=== PATIENT | male | born 2000 | race Asian ===

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

== ENCOUNTER 2022-03-03 18:07 | Emergency (ER) | payer OTHER ==
[~2022-03-03] VITALS: Ht 175.3 cm; Wt 88.9 kg
[~2022-03-03 18:07] MED LIST changes: +ELIQ2.5T PO
[2022-03-03] MEDS ORDERED: ACET-683 PO (18:16)
[2022-03-03] MEDS ORDERED: CAFF200T6 PO (18:16)
[2022-03-03] MEDS ORDERED: IBUP200C25 PO (18:16)
[2022-03-03 21:51] VITALS: BP 130/80
== END 2022-03-03 22:02 | disposition home or self-care (01) ==
LOC: M ED 18:07
DX: J02.9 Acute pharyngitis, unspecified (principal); B34.8 Other viral infections of unspecified site; D68.59 Other primary thrombophilia; Z86.711 Personal history of pulmonary embolism

== ENCOUNTER 2022-04-11 20:57 | Emergency (ER) | payer OTHER ==
[~2022-04-11] VITALS: Ht 175.3 cm; Wt 92.2 kg
[~2022-04-11 20:57] MED LIST changes: +CAFF200T6 PO; +IBUP200C25 PO
[2022-04-11] MEDS ORDERED: ONDANSETRON 4MG ORAL DISINTEGRATING TAB PO ONE (23:10)
[2022-04-12 00:48] VITALS: BP 130/76
== END 2022-04-12 00:50 | disposition home or self-care (01) ==
LOC: M ED 20:57
DX: G44.209 Tension-type headache, unspecified, not intractable (principal); G89.29 Other chronic pain

== ENCOUNTER 2022-12-13 11:48 | Emergency (ER) | payer OTHER ==
[~2022-12-13] VITALS: Ht 175.3 cm; Wt 81.8 kg
[2022-12-13] MEDS ORDERED: ASPI-1 PO (11:58)
[2022-12-13 12:58] LABS: HEMATOCRIT 45.5 % (42.0-52.0); MEAN CORPUSCULAR HEMOGLOBIN 28.5 pg (27.0-33.0); MEAN CORPUSCULAR VOLUME 86.5 fl (80.0-96.0); PLATELET COUNT, AUTOMATED 245 10^3/uL (150-450); RED BLOOD COUNT 5.26 10^6/uL (4.30-6.10); WHITE BLOOD COUNT 7.8 10^3/uL (4.0-10.0)
[2022-12-13 13:22] LABS: PHENCYCLIDINE URINE NEGATIVE (NEGATIVE)
[2022-12-13 13:23] LABS: AMPHETAMINES LEVEL URINE NEGATIVE (NEGATIVE); BARBITURATES URINE NEGATIVE (NEGATIVE); BENZODIAZEPINES URINE NEGATIVE (NEGATIVE); CANNABINOIDS URINE NEGATIVE (NEGATIVE); COCAINE METABOLITE URINE NEGATIVE (NEGATIVE); METHADONE URINE NEGATIVE (NEGATIVE); OPIATES URINE NEGATIVE (NEGATIVE)
[2022-12-13 13:24] LABS: ETHYL ALCOHOL (ETHANOL) 0.003 % (0.000-0.010)
[2022-12-13 13:26] LABS: BILIRUBIN,DIRECT 0.6 MG/DL (<0.4); SALICYLATE LEVEL 3.2 MG/DL (<30)
[2022-12-13 13:27] LABS: ALBUMIN 4.3 G/DL (3.2-5.2); ALKALINE PHOSPHATASE 86 U/L (46-116); ALT/SGPT 38 U/L (7.0-40); AST/SGOT 20 U/L (<34); BILIRUBIN,TOTAL 2.2 MG/DL (0.3-1.2); BLOOD UREA NITROGEN 24 MG/DL (9-23); CALCIUM LEVEL 9.2 MG/DL (8.5-10.1); CARBON DIOXIDE LEVEL 27 MMOL/L (20-31); CHLORIDE LEVEL 103 MMOL/L (98-107); CREATININE FOR GFR 0.85 MG/DL (0.70-1.30); GLUCOSE, FASTING 91 MG/DL (60-100); POTASSIUM SERUM 4.1 MMOL/L (3.5-5.1); SODIUM LEVEL 139 MMOL/L (136-145); TOTAL PROTEIN 7.2 G/DL (5.7-8.2)
[2022-12-13 13:29] LABS: THYROID STIMULATING HORMONE 0.995 uIU/ML (0.48-4.17)
[2022-12-13 13:45] LABS: ACETAMINOPHEN LEVEL < 2.0 UG/ML (10.0-20.0)
[2022-12-13] MEDS ORDERED: HOME MED LIST COMPLETE! XX SCH (18:00)
[2022-12-14 10:20] VITALS: BP 113/56
== END 2022-12-14 10:24 ==
LOC: M ED 11:48
DX: R45.851 Suicidal ideations (principal); F32.A Depression, unspecified; F41.9 Anxiety disorder, unspecified; Z86.711 Personal history of pulmonary embolism; D68.59 Other primary thrombophilia

== ENCOUNTER 2023-07-05 16:19 | Inpatient (IN) | payer OTHER ==
[~2023-07-05] VITALS: Ht 175.3 cm; Wt 86.3 kg
[~2023-07-05 16:19] MED LIST changes: +ASPI-1 PO; +SERT50TA29 PO
[2023-07-05] MEDS ORDERED: ELIQ5TAB PO (16:57)
[2023-07-05 16:58] LABS: MEAN CORPUSCULAR HGB CONC 34.1 g/dl (32.0-36.5); MEAN CORPUSCULAR VOLUME 85.1 fl (80.0-96.0); PLATELET COUNT, AUTOMATED 252 10^3/uL (150-450); RED BLOOD COUNT 5.17 10^6/uL (4.30-6.10); WHITE BLOOD COUNT 5.3 10^3/uL (4.0-10.0)
[2023-07-05] MEDS ORDERED: MULT-90 PO (16:58)
[2023-07-05] MEDS ORDERED: MED REC IN PROGRESS XX SCH (17:05)
[2023-07-05] MEDS ORDERED: HOME MED LIST COMPLETE! XX SCH (17:10)
[2023-07-05 17:20] LABS: ETHYL ALCOHOL (ETHANOL) < 0.003 % (0.000-0.010)
[2023-07-05 17:22] LABS: ACETAMINOPHEN LEVEL < 2.0 UG/ML (10.0-20.0); ALBUMIN 4.3 G/DL (3.2-5.2); ALKALINE PHOSPHATASE 93 U/L (46-116); ALT/SGPT 43 U/L (7.0-40); AST/SGOT 12 U/L (<34); BILIRUBIN,DIRECT 0.5 MG/DL (<0.4); BILIRUBIN,TOTAL 1.5 MG/DL (0.3-1.2); BLOOD UREA NITROGEN 20 MG/DL (9-23); CALCIUM LEVEL 9.4 MG/DL (8.5-10.1); CARBON DIOXIDE LEVEL 25 MMOL/L (20-31); CHLORIDE LEVEL 106 MMOL/L (98-107); CREATININE FOR GFR 0.97 MG/DL (0.70-1.30); GLOMERULAR FILTRATION RATE > 60.0 (>60); GLUCOSE, FASTING 105 MG/DL (60-100); POTASSIUM SERUM 4.1 MMOL/L (3.5-5.1); SALICYLATE LEVEL < 3.0 MG/DL (<30); SODIUM LEVEL 141 MMOL/L (136-145); TOTAL PROTEIN 7.4 G/DL (5.7-8.2)
[2023-07-05 17:24] LABS: THYROID STIMULATING HORMONE 0.744 uIU/ML (0.55-4.78)
[2023-07-05 17:43] LABS: AMPHETAMINES LEVEL URINE NEGATIVE (NEGATIVE); BARBITURATES URINE NEGATIVE (NEGATIVE); BENZODIAZEPINES URINE NEGATIVE (NEGATIVE); CANNABINOIDS URINE NEGATIVE (NEGATIVE); COCAINE METABOLITE URINE NEGATIVE (NEGATIVE); METHADONE URINE NEGATIVE (NEGATIVE); OPIATES URINE NEGATIVE (NEGATIVE); PHENCYCLIDINE URINE NEGATIVE (NEGATIVE)
[2023-07-05] MEDS ORDERED: APIXABAN 5 MG TAB (ELIQUIS) PO SCH (21:00)
[2023-07-05] MEDS ORDERED: SERTRALINE HCL 50 MG TAB PO SCH (21:00)
[2023-07-05] MEDS ORDERED: ACETAMINOPHEN TAB 650MG DOSE (2X325MG) PO PRN (22:00)
[2023-07-05] MEDS ORDERED: IBUPROFEN 400MG TAB PO PRN (22:00)
[2023-07-05] MEDS ORDERED: traZODone 50 MG TAB PO PRN (22:00)
[2023-07-05] MEDS ORDERED: diphenhydrAMINE 25MG CAP PO PRN (22:00)
[2023-07-05] MEDS ORDERED: MOM 30ML SUSPENSION UDC PO PRN (22:00)
[2023-07-05] MEDS ORDERED: MAALOX 30 ML SUSP *UDC PO PRN (22:00)
[2023-07-06 03:20] VITALS: BP 119/57; TEMP 97.1; O2SAT 98
[2023-07-06] MEDS: VENLAFAXINE **XR** 37.5 MG CAPSULE PO SCH (12:08)
[2023-07-06] MEDS: APIXABAN 5 MG TAB (ELIQUIS) PO SCH ×2 (12:08→21:26)
[2023-07-06 18:38] VITALS: BP 150/73; TEMP 97
[2023-07-06] MEDS ORDERED: SERTRALINE HCL 50 MG TAB PO SCH (21:00)
[2023-07-07 05:57] VITALS: BP 115/56; TEMP 97.2; O2SAT 97
[2023-07-07] MEDS: APIXABAN 5 MG TAB (ELIQUIS) PO SCH ×2 (08:51→20:52)
[2023-07-07] MEDS: VENLAFAXINE **XR** 37.5 MG CAPSULE PO SCH (08:51)
[2023-07-07 18:00] VITALS: BP 138/65; TEMP 97.3
[2023-07-08 06:41] VITALS: BP 99/55; TEMP 97; O2SAT 99
[2023-07-08] MEDS: VENLAFAXINE **XR** 37.5 MG CAPSULE PO SCH (08:22)
[2023-07-08] MEDS: APIXABAN 5 MG TAB (ELIQUIS) PO SCH ×2 (08:22→21:31)
[2023-07-08 17:40] VITALS: BP 132/66; TEMP 98.1; O2SAT 95
[2023-07-09 06:50] VITALS: BP 122/78; TEMP 97.8; O2SAT 100
[2023-07-09] MEDS: VENLAFAXINE **XR** 75MG CAPSULE PO SCH (08:43)
[2023-07-09] MEDS: APIXABAN 5 MG TAB (ELIQUIS) PO SCH ×2 (08:43→20:43)
[2023-07-09 18:28] VITALS: BP 125/58; TEMP 98.4; O2SAT 95
[2023-07-10 06:42] VITALS: BP 121/65; TEMP 97.6; O2SAT 99
[2023-07-10] MEDS: APIXABAN 5 MG TAB (ELIQUIS) PO SCH ×2 (08:21→21:10)
[2023-07-10] MEDS: VENLAFAXINE **XR** 75MG CAPSULE PO SCH (08:21)
[2023-07-10 17:06] VITALS: BP 136/68; TEMP 99.1
[2023-07-11 06:19] VITALS: BP 101/59; TEMP 97.5; O2SAT 99
[2023-07-11] MEDS: VENLAFAXINE **XR** 75MG CAPSULE PO SCH (09:26)
[2023-07-11] MEDS: APIXABAN 5 MG TAB (ELIQUIS) PO SCH (09:26)
[2023-07-11] MEDS ORDERED: VENL75CA47 PO (09:36)
== END 2023-07-11 10:27 | disposition home or self-care (01) | DRG 881 ==
LOC: M ED 16:19 → M ED INP 21:57 → M PSY 07-06 03:03
PROVIDERS: ADMIT Psychiatry & Neurology Psychiatry; ATTEND Student in an Organized Health Care Education/Training Program
DX: F32.9 Major depressive disorder, single episode, unspecified (principal); R45.851 Suicidal ideations; D68.59 Other primary thrombophilia; Z91.51 Personal history of suicidal behavior; F64.9 Gender identity disorder, unspecified; Z56.6 Other physical and mental strain related to work; Z79.01 Long term (current) use of anticoagulants; Z79.899 Other long term (current) drug therapy; Z20.822 Contact with and (suspected) exposure to COVID-19; Z86.711 Personal history of pulmonary embolism

== ENCOUNTER → 2023-08-05 | Outpatient (REF) ==
[~2023-08-05] MED LIST changes: +MULT-90 PO; +VENL75CA47 PO
== END ==
LOC: M PLAIMG 08:40
PROVIDERS: ATTEND Internal Medicine
DX: R06.02 Shortness of breath (principal)